=== PATIENT | male | born 1960 | race Caucasian/White ===

== ENCOUNTER 2018-06-14 09:35 | Inpatient (IN) | payer MEDICARE ==
[2018-06-14] MEDS ORDERED: ONDANSETRON 4 MG TAB.RAPDIS PO ONE (10:00)
--- NOTE | 2018-06-14 10:02 | ER Document Report ---
ED Medical Screen (RME) - General Chief Complaint: Blood Pressure Problem Stated Complaint: HIGH BLOOD PRESSURE Time Seen by Provider: 06/14/18 09:58 Mode of Arrival: Ambulatory Information source: Patient Notes: 57-year-old man with a history of hypertension, diabetes, chronic back pain presents with headache, tingling, blurry vision, off balance in the setting of elevated blood pressure. Patient's states the blood pressure is been elevated for the past week. The headache, nausea and vomiting started 3 days ago as well as the off balance. Patient's symptoms have been for 3 days. He is hypertensive in the triage room. Is no focal weakness. The gait was not assessed due to the fact that he is nauseated and does not feel well. TRAVEL OUTSIDE OF THE [place] IN LAST 30 DAYS: No - Related Data Allergies/Adverse Reactions: butorphanol tartrate [From Stadol] Allergy (Verified 06/14/18 09:39) clarithromycin [From Biaxin] Allergy (Verified 06/14/18 09:39) ketorolac tromethamine [From Toradol] Allergy (Verified 06/14/18 09:39) NSAIDS (Non-Steroidal Anti-Inflamma [Nsaids] Allergy (Verified 06/14/18 09:39) Penicillins Allergy (Verified 06/14/18 09:39) tramadol [Tramadol] Allergy (Verified 06/14/18 09:39) Past Medical History - Social History Frequency of alcohol use: None Drug Abuse: None - Past Medical History Cardiac Medical History: Reports: Hx Hypertension Endocrine Medical History: Reports: Hx Diabetes Mellitus Type 2 Renal/ Medical History: Denies: Hx Peritoneal Dialysis Musculoskeltal Medical History: Reports Hx Arthritis Past Surgical History: Reports: Hx Orthopedic Surgery - Multiple back neck and other orthopedic surgeries Physical Exam - Vital signs Vitals: Temp Pulse Resp BP Pulse Ox 99.2 F 106 H 18 223/120 H 96 06/14/18 09:39 06/14/18 09:39 06/14/18 09:39 06/14/18 09:39 06/14/18 09:39 Course - Vital Signs Vital signs: Temp Pulse Resp BP Pulse Ox 99.2 F 106 H 18 223/120 H 96 06/14/18 09:39 06/14/18 09:39 06/14/18 09:39 06/14/18 09:39 06/14/18 09:39 Doctor's Discharge - Discharge Referrals: RADHA CAMPA DO [Primary Care Provider] - Follow up as needed
[2018-06-14] MEDS ORDERED: AMLODIPINE BESYLATE 5 MG TABLET PO ONE ×2 (10:27→16:01)
[2018-06-14] MEDS ORDERED: NICARDIPINE HCL RTU, ISO-OS 20 MG/200 ML RTUINJ IV PRN (10:27)
--- NOTE | 2018-06-14 10:28 | RADIOLOGY REPORT (SQ) ---
EXAM DESCRIPTION: CT HEAD WITHOUT COMPLETED DATE/TIME: 06/14/2018 10:12 am REASON FOR STUDY: tao, hypertension COMPARISON: None. TECHNIQUE: Axial images acquired through the brain without intravenous contrast. Images reviewed wi th bone, brain and subdural windows. Additional sagittal and coronal reconstructions were generated. Images stored on PACS. All CT scanners at this facility use dose modulation, iterative reconstruction, and/or weight based d osing when appropriate to reduce radiation dose to as low as reasonably achievable (ALARA). [facility]: Dose Right [facility]: CareDose [facility]: Dose Right [facility]: Teradose 4D [facility]: Smart Work[employer]ound RADIATION DOSE: CT Rad equipment meets quality standard of care and radiation dose reduction techniq ues were employed. CTDIvol: 53.2 mGy. DLP: 1070 mGy-cm. mGy. LIMITATIONS: None. FINDINGS: VENTRICLES: Normal size and contour. CEREBRUM: No masses. No hemorrhage. No midline shift. No evidence for acute infarction. Normal gra y/white matter differentiation. No areas of low density in the white matter. CEREBELLUM: No masses. No hemorrhage. No alteration of density. No evidence for acute infarction. EXTRAAXIAL SPACES: No fluid collections. No masses. ORBITS AND GLOBE: No intra- or extraconal masses. Normal contour of globe without masses. CALVARIUM: No fracture. PARANASAL SINUSES: A small mucosal polyp or retention cyst is identified in the left maxillary antra SOFT TISSUES: No mass or hematoma. OTHER: No other significant finding. IMPRESSION: NORMAL BRAIN CT WITHOUT CONTRAST. EVIDENCE OF ACUTE STROKE: NO. COMMENT: Quality ID # [id number]: Final reports with documentation of one or more dose reduction techniques (e.g., Automated exposure control, adjustment of the mA and/or kV according to patient size, use of iterative reconstruction technique) TECHNICAL DOCUMENTATION: JOB ID: [id number] [employer]- All Rights Reserved Reading location - IP/workstation name: [email or web address]
--- NOTE | 2018-06-14 10:37 | RADIOLOGY REPORT (SQ) ---
EXAM DESCRIPTION: CHEST SINGLE VIEW COMPLETED DATE/TIME: 06/14/2018 10:24 am REASON FOR STUDY: cp COMPARISON: None. EXAM PARAMETERS: NUMBER OF VIEWS: One view. TECHNIQUE: Single frontal radiographic view of the chest acquired. RADIATION DOSE: NA LIMITATIONS: None. FINDINGS: LUNGS AND PLEURA: No opacities, masses or pneumothorax. No pleural effusion. MEDIASTINUM AND HILAR STRUCTURES: No masses. Contour normal. HEART AND VASCULAR STRUCTURES: Heart normal in size. Normal vasculature. BONES: No acute findings. Old healed left rib fractures are identified. Degenerative changes are id entified in the thoracic spine HARDWARE: Orthopedic hardware is identified in the lower cervical spine. OTHER: No other significant finding. IMPRESSION: NO ACUTE RADIOGRAPHIC FINDING IN THE CHEST. TECHNICAL DOCUMENTATION: JOB ID: [id number] [email or web address]- All Rights Reserved Reading location - IP/workstation name: [email or web address]
[2018-06-14 11:36] LABS: ABSOLUTE EOSINOPHILS # (AUTO) 0.1 10^3/uL (0.0-0.6); ABSOLUTE LYMPHOCYTES (AUTO) 1.4 10^3/uL (0.5-4.7); ABSOLUTE MONOCYTES (AUTO) 0.6 10^3/uL (0.1-1.4); ABSOLUTE NEUT (AUTO) 6.4 10^3/uL (1.7-8.2); BASOPHILS % (AUTO) 0.5 % (0-2); EOSINOPHILS % (AUTO) 0.6 % (0-6); HEMATOCRIT 41.4 % (37.9-51.0); HEMOGLOBIN 14.7 g/dL (13.5-17.0); LYMPHOCYTES % (AUTO) 16.5 % (13-45); MEAN CORPUSCULAR HEMOGLOBIN 32.2 pg (27.0-33.4); MEAN CORPUSCULAR HGB CONC 35.6 g/dL (32.0-36.0); MEAN CORPUSCULAR VOLUME 90 fl (80-97); MONOCYTES % (AUTO) 7.1 % (3-13); PLATELET COUNT 321 10^3/uL (150-450); RED BLOOD COUNT 4.58 10^6/uL (4.35-5.55); RED CELL DISTRIBUTION WIDTH 14.4 % (11.5-14.0); SEGMENTED NEUTROPHILS % (AUTO) 75.3 % (42-78); TOTAL CELLS COUNTED % (AUTO) 100 %; WHITE BLOOD COUNT 8.5 10^3/uL (4.0-10.5)
[2018-06-14 12:06] LABS: ALANINE AMINOTRANSFERASE 41 U/L (21-72); ALBUMIN 4.4 g/dL (3.5-5.0); ALKALINE PHOSPHATASE 50 U/L (38-126); ANION GAP 17 (5-19); ASPARTATE AMINO TRANSFERASE 14 U/L (17-59); BILIRUBIN,DIRECT 0.3 mg/dL (0.0-0.4); BILIRUBIN,TOTAL 0.4 mg/dL (0.2-1.3); BLOOD UREA NITROGEN 10 mg/dL (7-20); CALCIUM 9.3 mg/dL (8.4-10.2); CARBON DIOXIDE 23 mmol/L (22-30); CHLORIDE 100 mmol/L (98-107); GLUCOSE 157 mg/dL (75-110); POTASSIUM 4.1 mmol/L (3.6-5.0); SODIUM 140.1 mmol/L (137-145); TOTAL PROTEIN 7.4 g/dL (6.3-8.2)
[2018-06-14 12:09] LABS: CREATINE KINASE MB 1.05 ng/mL (<4.55)
[2018-06-14 12:10] LABS: TROPONIN I < 0.012 ng/mL
[2018-06-14 12:11] LABS: CREATINE KINASE 151 U/L (55-170); LIPASE 37.2 U/L (23-300)
[2018-06-14] MEDS ORDERED: LORAZEPAM INJ 2 MG/1 ML VIAL IV ONE (12:12)
[2018-06-14] MEDS ORDERED: NORMAL SALINE 1000 ML 1,000 ML IV ONE (12:14)
[2018-06-14] MEDS ORDERED: OXYCODONE-ACETAMINOPHEN 5-325 MG TABLET PO ONE (12:37)
[2018-06-14 12:45] LABS: APPEARANCE,URINE CLEAR; BILIRUBIN,URINE NEGATIVE (NEGATIVE); COLOR,URINE COLORLESS; GLUCOSE, URINE NEGATIVE (NEGATIVE); KETONES,URINE NEGATIVE (NEGATIVE); LEUKOCYTE ESTERASE,URINE NEGATIVE (NEGATIVE); NITRITE,URINE NEGATIVE (NEGATIVE); PROTEIN,URINE NEGATIVE (NEGATIVE); URINE SPECIFIC GRAVITY 1.003; UROBILINOGEN,URINE NEGATIVE mg/dL (<2.0)
--- NOTE | 2018-06-14 12:58 | EKG REPORT ---
SEVERITY:- ABNORMAL ECG - SINUS TACHYCARDIA LOW VOLTAGE IN FRONTAL LEADS BORDERLINE R WAVE PROGRESSION, ANTERIOR LEADS BORDERLINE T ABNORMALITIES, INFERIOR LEADS : Confirmed by: Kiran Ornelas MD 14-Jun-2018 12:57:03
[2018-06-14 13:02] LABS: URINE AMPHETAMINES SCREEN NEGATIVE; URINE BARBITURATES SCREEN NEGATIVE; URINE BENZODIAZEPINES SCREEN NEGATIVE; URINE COCAINE SCREEN NEGATIVE; URINE MARIJUANA (THC) SCREEN NEGATIVE; URINE METHADONE SCREEN NEGATIVE; URINE PHENCYCLIDINE SCREEN NEGATIVE
--- NOTE | 2018-06-14 14:03 | ER Document Report ---
ED General - General Chief Complaint: Blood Pressure Problem Stated Complaint: HIGH BLOOD PRESSURE Time Seen by Provider: 06/14/18 09:58 Mode of Arrival: Ambulatory TRAVEL OUTSIDE OF THE [place] IN LAST 30 DAYS: No - HPI Patient complains to provider of: Elevated blood pressure feeling unwell Notes: Patient coming in for elevated blood pressure feeling unwell for the last 3 days. states patient had intermittent slurred speech along with some numbness and tingling of his upper extremities. Patient denies any falls denies any unilateral weakness. Patient states history of hypertension and has been compliant with medications of metoprolol 25 mg twice daily. Patient denies any recent travel or antibiotics. Upon my evaluation denies any chest pain or abdominal pain. Patient does have a history of muscle skeletal disease requiring chronic opioid therapy. Patient states this morning he did take his medications however did vomit these. Patient otherwise is compliance with his medications. The changes in his pain medications also has a history of anxiety and is on benzodiazepine therapy. By my evaluation patient was to be resting comfortably with a significantly elevated blood pressure. - Related Data Allergies/Adverse Reactions: butorphanol tartrate [From Stadol] Allergy (Verified 06/14/18 09:39) clarithromycin [From Biaxin] Allergy (Verified 06/14/18 09:39) ketorolac tromethamine [From Toradol] Allergy (Verified 06/14/18 09:39) NSAIDS (Non-Steroidal Anti-Inflamma [Nsaids] Allergy (Verified 06/14/18 09:39) Penicillins Allergy (Verified 06/14/18 09:39) tramadol [Tramadol] Allergy (Verified 06/14/18 09:39) Past Medical History - General Information source: Patient - Social History Smoking Status: Former Smoker Frequency of alcohol use: None Drug Abuse: None Family History: Reviewed & Not Pertinent Patient has suicidal ideation: No Patient has homicidal ideation: No - Past Medical History Cardiac Medical History: Reports: Hx Hypertension Endocrine Medical History: Reports: Hx Diabetes Mellitus Type 2 Renal/ Medical History: Denies: Hx Peritoneal Dialysis Musculoskeletal Medical History: Reports Hx Arthritis Past Surgical History: Reports: Hx Orthopedic Surgery - Multiple back neck and other orthopedic surgeries Review of Systems - Review of Systems Constitutional: Weakness - The hypertension feeling un well EENT: No symptoms reported Cardiovascular: No symptoms reported Respiratory: No symptoms reported Gastrointestinal: No symptoms reported Genitourinary: No symptoms reported Male Genitourinary: No symptoms reported Musculoskeletal: No symptoms reported Skin: No symptoms reported Hematologic/Lymphatic: No symptoms reported Neurological/Psychological: No symptoms reported -: Yes All other systems reviewed and negative Physical Exam - Vital signs Vitals: Temp Pulse Resp BP Pulse Ox 99.2 F 106 H 18 223/120 H 96 06/14/18 09:39 06/14/18 09:39 06/14/18 09:39 06/14/18 09:39 06/14/18 09:39 Interpretation: Hypertensive - General General appearance: Appears well, Alert - HEENT Head: Normocephalic, Atraumatic Eyes: Normal Pupils: PERRL - Respiratory Respiratory status: No respiratory distress Chest status: Nontender Breath sounds: Normal Chest palpation: Normal - Cardiovascular Rhythm: Regular Heart sounds: Normal auscultation Murmur: No - Abdominal Inspection: Normal Distension: No distension Bowel sounds: Normal Tenderness: Nontender Organomegaly: No organomegaly - Back Back: Normal, Nontender - Extremities General upper extremity: Normal inspection, Nontender, Normal color, Normal ROM , Normal temperature General lower extremity: Normal inspection, Nontender, Normal color, Normal ROM , Normal temperature, Normal weight bearing. No: Elda's sign - Neurological Neuro grossly intact: Yes Cognition: Normal Orientation: AAOx4 Hugo Coma Scale Eye Opening: Spontaneous Hugo Coma Scale Verbal: Oriented Hugo Coma Scale Motor: Obeys Commands Hugo Coma Scale Total: 15 Speech: Normal - Speech seems to be normal and clear to me however at bedside states that this seem abnormal to her and slightly slurred Cranial nerves: Normal Cerebellar coordination: Normal Motor strength normal: LUE, RUE, LLE, RLE Additional motor exam normals: Equal teacher dramatics Sensory: Normal Knee - Reflex grade: 2 = Normal - Psychological Associated symptoms: Normal affect, Normal mood - Skin Skin Temperature: Warm Skin Moisture: Dry Skin Color: Normal Course - Re-evaluation Re-evalutation: 06/14/18 14:45 Patient coming in for slurred speech feeling unwell for the last 3 days paresthesias in the upper extremities. Patient's neurological exam does not reveal any unilateral weakness or any signs of acute intracranial pathology. Possible etiologies the patient has a hypertensive emergency because blood pressure is significantly elevated. Patient was given oral dose of amlodipine and started on a Cardene drip. Did set goals for systolic blood pressure to be around 180. Patient during his stay here in ER did become tachycardic upon my reevaluation still denies any chest pain or abdominal pain. Patient states he is feeling anxious therefore a dose of Ativan was given also a dose of the patient's pain medication at home was given. The reviewed patient's narcotic database showing that he is on benzodiazepines 3 times a day along with oxycodone 10 mg. Heart rate and blood pressure did improve. We were able to turn off the Cardene drip. Because of possible underlying hypertensive emergency did discuss this with the hospitalist and will agree to admit the patient to telemetry. Patient urine drug screen did return negative as I was concerned about possible underlying illicit substances because the patient's elevated blood pressure and tachycardia. - Vital Signs Vital signs: Temp Pulse Resp BP Pulse Ox 99.2 F 106 H 18 189/91 H 95 06/14/18 09:39 06/14/18 09:39 06/14/18 09:39 06/14/18 12:21 06/14/18 12:21 - Laboratory Result Diagrams: 06/14/18 11:05 06/14/18 11:05 Laboratory results interpreted by me: 06/14/18 06/14/18 06/14/18 11:05 11:05 12:20 RDW 14.4 H Glucose 157 H AST 14 L Urine Blood SMALL H Critical Care Note - Critical Care Note Total time excluding time spent on procedures (mins): 35 Comments: Time spent managing drips patient with hypertensive emergency Discharge - Discharge Clinical Impression: Hypertensive emergency, Numbness Condition: Good Disposition: ADMITTED OBSERVATION Admitting Provider: Hospitalist - [facility] Admitted: Telemetry
[2018-06-14] MEDS ORDERED: METOPROLOL TARTRATE 25 MG TABLET PO ONE (15:37)
[2018-06-14] MEDS ORDERED: MAGNESIUM HYDROXIDE SUSP 30 ML UDCUP PO PRN (15:45)
[2018-06-14] MEDS ORDERED: ONDANSETRON 4 MG TAB.RAPDIS PO PRN (15:45)
[2018-06-14] MEDS ORDERED: IPRATROPIUM/ALBUTEROL 0.5-2.5 MG/3 ML AMPUL NEB PRN (15:45)
[2018-06-14] MEDS ORDERED: OXYCODONE-ACETAMINOPHEN 5-325 MG TABLET PO PRN ×2 (15:45→17:00)
[2018-06-14] MEDS ORDERED: LORAZEPAM 1 MG TABLET PO PRN (15:56)
[2018-06-14] MEDS ORDERED: HYDRALAZINE HCL INJ/PF 20 MG/1 ML SDV IV PRN (16:04)
--- NOTE | 2018-06-14 16:19 | EKG REPORT ---
SEVERITY:- ABNORMAL ECG - SINUS TACHYCARDIA LOW VOLTAGE IN FRONTAL LEADS CONSIDER ANTEROSEPTAL INFARCT BORDERLINE T ABNORMALITIES, INFERIOR LEADS : Confirmed by: Kiran Ornelas MD 14-Jun-2018 16:19:02
--- NOTE | 2018-06-14 16:25 | PDOC H&P ---
History of Present Illness Admission Date/PCP: 06/14/18 14:35 RADHA CAMPA DO Patient complains of: Headache, parasthesia, generalized weakness History of Present Illness: ESAU PALOMO is a 57 year old male Past Medical History Medical History: None Cardiac Medical History: Reports: Hypertension Denies: Congestive Heart Failure, Coronary Artery Disease, Myocardial Infarction Pulmonary Medical History: Reports: None EENT Medical History: Reports: None Neurological Medical History: Reports: None Endocrine Medical History: Reports: Diabetes Mellitus Type 2 Renal/ Medical History: Reports: None Malignancy Medical History: Reports: None Musculoskeltal Medical History: Reports: Arthritis Skin Medical History: Reports: None Psychiatric Medical History: Reports: General Anxiety Disorder Traumatic Medical History: Reports: None Hematology: Reports: None Infectious Medical History: Reports: None Past Surgical History Past Surgical History: Reports: Orthopedic Surgery - Multiple back neck and other orthopedic surgeries Social History Information Source: Patient Lives with: Spouse/Significant other Smoking Status: Former Smoker Frequency of Alcohol Use: None Hx Recreational Drug Use: No Hx Prescription Drug Abuse: No - Advance Directive Resuscitation Status: Full Code Family History Family History: Reviewed & Not Pertinent Parental Family History Reviewed: No Children Family History Reviewed: No Sibling(s) Family History Reviewed.: No Medication/Allergy Allergies/Adverse Reactions: butorphanol tartrate [From Stadol] Allergy (Verified 06/14/18 09:39) clarithromycin [From Biaxin] Allergy (Verified 06/14/18 09:39) ketorolac tromethamine [From Toradol] Allergy (Verified 06/14/18 09:39) NSAIDS (Non-Steroidal Anti-Inflamma [Nsaids] Allergy (Verified 06/14/18 09:39) Penicillins Allergy (Verified 06/14/18 09:39) tramadol [Tramadol] Allergy (Verified 06/14/18 09:39) Review of Systems Constitutional: PRESENT: headache(s), weakness. ABSENT: chills, fever(s), weight gain, weight loss Eyes: PRESENT: visual disturbances Ears: ABSENT: hearing changes Cardiovascular: PRESENT: chest pain. ABSENT: dyspnea on exertion, edema, orthropnea, palpitations Respiratory: ABSENT: cough, hemoptysis Gastrointestinal: PRESENT: nausea, vomiting. ABSENT: abdominal pain, constipation, diarrhea, hematemesis, hematochezia Genitourinary: ABSENT: dysuria, hematuria Musculoskeletal: PRESENT: back pain. ABSENT: joint swelling Integumentary: ABSENT: rash, wounds Neurological: PRESENT: paresthesias, tingling. ABSENT: abnormal gait, abnormal speech, confusion, dizziness, focal weakness, syncope Psychiatric: PRESENT: anxiety. ABSENT: depression, homidical ideation, suicidal ideation Endocrine: ABSENT: cold intolerance, heat intolerance, polydipsia, polyuria Hematologic/Lymphatic: ABSENT: easy bleeding, easy bruising Physical Exam Vital Signs: Temp Pulse Resp BP Pulse Ox 99.2 F 106 H 15 178/110 H 94 06/14/18 09:39 06/14/18 09:39 06/14/18 15:16 06/14/18 15:16 06/14/18 15:16 General appearance: PRESENT: no acute distress, well-developed, well-nourished, other - Overweight Head exam: PRESENT: atraumatic, normocephalic Eye exam: PRESENT: conjunctiva pink, EOMI, PERRLA. ABSENT: scleral icterus Ear exam: PRESENT: normal external ear exam Mouth exam: PRESENT: moist, tongue midline Neck exam: ABSENT: carotid bruit, JVD, lymphadenopathy, thyromegaly Respiratory exam: PRESENT: clear to auscultation yolis, symmetrical, unlabored. ABSENT: rales, rhonchi, wheezes Cardiovascular exam: PRESENT: RRR, tachycardia. ABSENT: diastolic murmur, rubs , systolic murmur Pulses: PRESENT: normal dorsalis pedis pul Vascular exam: PRESENT: normal capillary refill GI/Abdominal exam: PRESENT: normal bowel sounds, soft. ABSENT: distended, guarding, mass, organolmegaly, rebound, tenderness Rectal exam: PRESENT: deferred Extremities exam: PRESENT: full ROM. ABSENT: calf tenderness, clubbing, pedal edema Neurological exam: PRESENT: alert, awake, oriented to person, oriented to place , oriented to time, oriented to situation, CN II-XII grossly intact. ABSENT: motor sensory deficit Psychiatric exam: PRESENT: appropriate affect, normal mood. ABSENT: homicidal ideation, suicidal ideation Skin exam: PRESENT: dry, intact, warm. ABSENT: cyanosis, rash Results Impressions: Head CT 06/14/18 09:59 IMPRESSION: NORMAL BRAIN CT WITHOUT CONTRAST. EVIDENCE OF ACUTE STROKE: NO. Chest X-Ray 06/14/18 10:00 IMPRESSION: NO ACUTE RADIOGRAPHIC FINDING IN THE CHEST. Assessment & Plan - Diagnosis (1) Hypertensive urgency Is this a current diagnosis for this admission?: Yes Plan: The patient presented with a complaint of 1 week of progressively worsening blood pressures despite compliant use in his home dose metoprolol. The patient reports that he has had intermittent headaches, blurred vision, paresthesia, and generalized weakness. He decided to come into the emergency department today following an episode of nausea and vomiting. Upon arrival blood pressure found to be 223/120 with tachycardia 90-160. The patient was provided p.o. amlodipine briefly placed on a Cardene drip with subsequent improvement in blood pressures. The Cardene drip was discontinued proximally [address], chest x-ray, and EKG benign. Laboratory evaluation is unremarkable, including negative troponin. UDS is negative. Patient is admitted to the medical floor on continuous cardiac telemetry. He is provided a note dose of metoprolol and amlodipine Will resume his home dose metoprolol 25 mg twice daily and lisinopril 20 mg daily. The patient is placed on amlodipine 10 mg daily. IV hydralazine as needed for blood pressure control. Consider clonidine patch; may provide dual HTN and Anxiety benefit Will continue to trend troponins and obtain lipid, A1c and TSH with morning labs. Consider Renal U/S if BP remains persistently elevated. (2) Intermittent paresthesia of hand and foot Is this a current diagnosis for this admission?: Yes Plan: Unclear etiology; possibly related to hypertensive urgency versus multiple orthopedic spine surgeries. No red flags. Patient reports allergy to Lyrica and gabapentin. We will evaluate C-Spine xray. (3) Tachycardia Is this a current diagnosis for this admission?: Yes Plan: Anxiety vs reflex tachycardia r/t missed metoprolol dose this am. Low suspicion for PE as patient denies dyspnea and maintains oxygen saturations >98% on room air, no recent travel, (-) extremity edema. ProBNP is nml Initial troponin is negative EKG is negative for acute MO CXR and Head CT normal. Will monitor on continuous telemetry. We will check TSH. Continue trending troponins. Resume home metoprolol. (4) Anxiety Is this a current diagnosis for this admission?: Yes Plan: Continue the patient's home medication regimen; Xanax 1 mg every 6 hours as needed. (5) Chronic pain Is this a current diagnosis for this admission?: Yes Plan: We will continue the patient's home medication regimen; oxycodone 10 mg every 6 hours. (6) Opiate dependence, continuous Is this a current diagnosis for this admission?: Yes (7) Benzodiazepine dependence, continuous Is this a current diagnosis for this admission?: Yes - Time Time Spent: 50 to 70 Minutes Medications reviewed and adjusted accordingly: Yes Anticipated discharge: Home Within: within 24 hours
[2018-06-14] MEDS ORDERED: LISINOPRIL 10 MG TABLET PO ONE (17:15)
[2018-06-14] MEDS: ALPRAZOLAM 0.5 MG TABLET PO PRN (17:42)
[2018-06-14] MEDS ORDERED: AMLODIPINE BESYLATE 10 MG TABLET PO ONE (18:00)
[2018-06-14] MEDS ORDERED: NITROGLYCERIN 0.4 MG/TAB 25 TAB/BOTTLE ONE (21:05)
[2018-06-14] MEDS ORDERED: KETOROLAC TROMETHAMINE INJ/PF 30 MG/1 ML SDV IV PRN (21:07)
[2018-06-14] MEDS ORDERED: METOPROLOL TARTRATE PF/INJ 5 MG/5 ML SDV IV ONE (21:10)
[2018-06-14] MEDS ORDERED: NITROGLYCERIN 0.4 MG/TAB 25 TAB/BOTTLE SL ONE (21:15)
[2018-06-14] MEDS: ACETAMINOPHEN 325 MG TABLET PO PRN (21:22)
[2018-06-14] MEDS: FAMOTIDINE 20 MG TABLET PO SCH (21:22)
[2018-06-14] MEDS: HEPARIN SOD (PORCINE) 5,000 UNIT/ML 1 ML SYRINGE SUBCUT SCH (22:08)
[2018-06-14] MEDS: METOPROLOL TARTRATE 25 MG TABLET PO SCH (22:09)
[2018-06-14] MEDS: OXYCODONE-ACETAMINOPHEN 5-325 MG TABLET PO PRN (22:20)
[2018-06-15] MEDS: ALPRAZOLAM 0.5 MG TABLET PO PRN ×4 (00:01→20:53)
[2018-06-15] MEDS: MAG HYDROX/AL HYDROX/SIMETH SUSP 30 ML UDCUP PO PRN ×2 (03:02→20:43)
[2018-06-15] MEDS: HEPARIN SOD (PORCINE) 5,000 UNIT/ML 1 ML SYRINGE SUBCUT SCH ×3 (06:28→22:06)
[2018-06-15 06:34] LABS: HEMATOCRIT 39.8 % (37.9-51.0); HEMOGLOBIN 13.8 g/dL (13.5-17.0); MEAN CORPUSCULAR HEMOGLOBIN 31.6 pg (27.0-33.4); MEAN CORPUSCULAR HGB CONC 34.6 g/dL (32.0-36.0); MEAN CORPUSCULAR VOLUME 91 fl (80-97); PLATELET COUNT 290 10^3/uL (150-450); RED BLOOD COUNT 4.36 10^6/uL (4.35-5.55); RED CELL DISTRIBUTION WIDTH 14.4 % (11.5-14.0); WHITE BLOOD COUNT 7.6 10^3/uL (4.0-10.5)
[2018-06-15 06:56] LABS: ANION GAP 13 (5-19); BLOOD UREA NITROGEN 13 mg/dL (7-20); CALCIUM 9.2 mg/dL (8.4-10.2); CARBON DIOXIDE 26 mmol/L (22-30); CHLORIDE 102 mmol/L (98-107); CHOLESTEROL 179.23 mg/dL (0-200); GLUCOSE 112 mg/dL (75-110); POTASSIUM 4.5 mmol/L (3.6-5.0); SODIUM 140.7 mmol/L (137-145); TRIGLYCERIDES 300 mg/dL (<150)
[2018-06-15 07:07] LABS: DIRECT LDL 95 mg/dL (<100)
[2018-06-15] MEDS ORDERED: ONDANSETRON 4 MG TAB.RAPDIS PO PRN (08:00)
[2018-06-15] MEDS: OXYCODONE-ACETAMINOPHEN 5-325 MG TABLET PO PRN (08:24)
[2018-06-15] MEDS: METOPROLOL TARTRATE 25 MG TABLET PO SCH ×3 (09:10→22:05)
[2018-06-15] MEDS: FAMOTIDINE 20 MG TABLET PO SCH ×2 (09:14→22:06)
[2018-06-15] MEDS ORDERED: AMLODIPINE BESYLATE 10 MG TABLET PO SCH (10:00)
--- NOTE | 2018-06-15 10:31 | RADIOLOGY REPORT (SQ) ---
EXAM DESCRIPTION: CERV SP 3 VIEW OR LESS COMPLETED DATE/TIME: 06/15/2018 8:53 am REASON FOR STUDY: BUE parasthesia; hx c-spine surgery I16.0 HYPERTENSIVE URGENCY R73.9 HYPERGLYCEM IA, UNSPECIFIED COMPARISON: CT brain 06/14/2018 NUMBER OF VIEWS: Three views. TECHNIQUE: AP, lateral and odontoid radiographic images acquired of the cervical spine. Additional swimmer's view to demonstrate the lower cervical spine LIMITATIONS: Large patient, difficult to visualize the cervical spine inferior to C5 FINDINGS: MINERALIZATION: Normal. ALIGNMENT: Grossly normal VERTEBRAE: Vertebral bodies of normal height. DISCS: Post fusion at C4-5, C5-6 and C6-7 with anterior fixation plate and disc spacers HARDWARE: As above SOFT TISSUES: No masses or calcifications. Lung apices clear. OTHER: No other significant finding. IMPRESSION: Post fusion at C4-5, C5-6, and C6-7 with hardware and disc spacers. No gross malalignme nt. TECHNICAL DOCUMENTATION: JOB ID: [id number] [employer]- All Rights Reserved Reading location - IP/workstation name: [email or web address]
[2018-06-15] MEDS ORDERED: OXYCODONE-ACETAMINOPHEN 5-325 MG TABLET PO PRN (11:37)
[2018-06-15] MEDS: LISINOPRIL 10 MG TABLET PO SCH (12:38)
[2018-06-15 12:43] LABS: APPEARANCE,URINE CLEAR; BILIRUBIN,URINE NEGATIVE (NEGATIVE); COLOR,URINE STRAW; GLUCOSE, URINE NEGATIVE (NEGATIVE); KETONES,URINE NEGATIVE (NEGATIVE); LEUKOCYTE ESTERASE,URINE NEGATIVE (NEGATIVE); NITRITE,URINE NEGATIVE (NEGATIVE); PROTEIN,URINE NEGATIVE (NEGATIVE); URINE SPECIFIC GRAVITY 1.006; UROBILINOGEN,URINE NEGATIVE mg/dL (<2.0)
[2018-06-15 13:15] LABS: URINE AMPHETAMINES SCREEN NEGATIVE; URINE BARBITURATES SCREEN NEGATIVE; URINE BENZODIAZEPINES SCREEN NEGATIVE; URINE COCAINE SCREEN NEGATIVE; URINE MARIJUANA (THC) SCREEN NEGATIVE; URINE METHADONE SCREEN NEGATIVE; URINE PHENCYCLIDINE SCREEN NEGATIVE
--- NOTE | 2018-06-15 13:53 | Physician Advisory Note ---
Physician Advisor ProgressNote .: Pursuant to the plan for Rama Alva, I have reviewed the medical record for this patient. Physician Advisor Statement: Please consider documenting, if you agree: 1. "Hypertensive emergency producing WALLER/blurred vision/slurred speech/ paresthesias/CP/N/V" - (Dx "HTN-adali urgency" indicates there are no associated sx.) 2. "Orthostatic hypotension due to [specific multiple BP meds]" 3. "Acute cerebrovascular insufficiency" (causing general weakness, ambulatory dysfunction, ...) related to tremendous change in BPs w/in 24 hrs? 4. "Ambulatory dysfunction due to " (combo of #2 + ) 5. Medical necessity: Please spell out the reasons, each day, that pt is not yet clinically safe for d/c from hospital (May use some of the points below PRN , &/or state "CONCERNED about "). Status: 57yo w/opioid/benzo dependence, HTN, DM-2, mult ortho surgeries incl C- spine, on chr metoprolol, in w/severe HTN findings associated w/multiple symptoms & requiring mult agents to produce reasonable improvement initially, approp'ly brought in initially as Obs. However, continued to have persistent tachycardia >100 through most of first day, & since last PM has had prominent hypotension down to less than half the initial BPs (systolic drops of >110 & diast changes of >60, within 24 hrs), which is a LOT for the brain to accommodate. Today, feeling very orthostatic with attempting PT, only able to walk 8 ft w/FWW w/unsteady gait. Orthostatics (+) today. Will need continued PT/OT. Not safe for d/c today. Appropriate for change to INpt status today w/ documentation of medical necessity reasons. Thanks! CK
--- NOTE | 2018-06-15 19:43 | PDOC PROGRESS REPORT ---
Subjective Progress Note for:: 06/15/18 Subjective:: The patient is a 57-year-old male with a past medical history of hypertension, diabetes mellitus type 2, general anxiety disorder, chronic back pain, chronic opiate and benzodiazepine dependence who was admitted 06/14/18 with hypertensive emergency. The patient was seen on afternoon rounds with his present. He states that he is feeling better this afternoon as compared to earlier today. He reports that his headache has resolved, he feels less tremulous and more stable when up ambulatory to the bathroom. He does report continued intermittent paresthesias that are more pronounced per his baseline. He does admit to right lower extremity weakness chronically as a result of his previous spine injuries/ surgeries. He denies fever, chills, headaches, dizziness, blurred vision, chest pain, palpitations, dyspnea, orthopnea, cough, abdominal pain, nausea vomiting and diarrhea. Neither he or his have any specific concerns at this time. No concerns per nursing. Reason For Visit: HYPERTENSIVE EMERGENCY Physical Exam Vital Signs: Temp Pulse Resp BP Pulse Ox 98 F 72 18 118/87 H 94 06/15/18 16:00 06/15/18 16:00 06/15/18 16:00 06/15/18 16:00 06/15/18 16:00 Intake & Output 06/14/18 06/15/18 06/16/18 06:59 06:59 06:59 Intake Total 709 1346 Output Total 1250 1175 Balance -541 171 Weight 95.8 kg General appearance: PRESENT: no acute distress, well-developed, well-nourished - Overweight Head exam: PRESENT: atraumatic, normocephalic Eye exam: PRESENT: conjunctiva pink, EOMI, PERRLA. ABSENT: scleral icterus Ear exam: PRESENT: normal external ear exam Mouth exam: PRESENT: moist, tongue midline Neck exam: ABSENT: carotid bruit, JVD, lymphadenopathy, thyromegaly Respiratory exam: PRESENT: clear to auscultation yolis. ABSENT: rales, rhonchi, wheezes Cardiovascular exam: PRESENT: RRR. ABSENT: diastolic murmur, rubs, systolic murmur Pulses: PRESENT: normal dorsalis pedis pul Vascular exam: PRESENT: normal capillary refill GI/Abdominal exam: PRESENT: normal bowel sounds, soft. ABSENT: distended, guarding, mass, organolmegaly, rebound, tenderness Rectal exam: PRESENT: deferred Extremities exam: PRESENT: full ROM. ABSENT: calf tenderness, clubbing, pedal edema Neurological exam: PRESENT: alert, awake, oriented to person, oriented to place , oriented to time, oriented to situation, CN II-XII grossly intact. ABSENT: motor sensory deficit Psychiatric exam: PRESENT: appropriate affect, normal mood. ABSENT: homicidal ideation, suicidal ideation Skin exam: PRESENT: dry, intact, warm. ABSENT: cyanosis, rash Results Laboratory Results: 06/15/18 05:29 06/15/18 05:29 06/15/18 06/15/18 06/15/18 05:29 05:29 05:29 WBC 7.6 RBC 4.36 Hgb 13.8 Hct 39.8 MCV 91 MCH 31.6 MCHC 34.6 RDW 14.4 H Plt Count 290 Sodium 140.7 Potassium 4.5 Chloride 102 Carbon Dioxide 26 Anion Gap 13 BUN 13 Creatinine 1.10 Est GFR ( Amer) > 60 Est GFR (Non-Af Amer) > 60 Glucose 112 H Calcium 9.2 Triglycerides 300 H Cholesterol 179.23 LDL Cholesterol Direct 95 VLDL Cholesterol 60.0 H HDL Cholesterol 37 L TSH 2.00 Urine Color Urine Appearance Urine pH Ur Specific [place] Urine Protein Urine Glucose (UA) Urine Ketones Urine Blood Urine Nitrite Ur Leukocyte Esterase Urine RBC (Auto) 06/15/18 12:00 WBC RBC Hgb Hct MCV MCH MCHC RDW Plt Count Sodium Potassium Chloride Carbon Dioxide Anion Gap BUN Creatinine Est GFR ( Amer) Est GFR (Non-Af Amer) Glucose Calcium Triglycerides Cholesterol LDL Cholesterol Direct VLDL Cholesterol HDL Cholesterol TSH Urine Color STRAW Urine Appearance CLEAR Urine pH 6.0 Ur Specific [place] 1.006 Urine Protein NEGATIVE Urine Glucose (UA) NEGATIVE Urine Ketones NEGATIVE Urine Blood NEGATIVE Urine Nitrite NEGATIVE Ur Leukocyte Esterase NEGATIVE Urine RBC (Auto) 0 06/14/18 06/14/18 15:58 20:05 Troponin I < 0.012 < 0.012 Impressions: Head CT 06/14/18 09:59 IMPRESSION: NORMAL BRAIN CT WITHOUT CONTRAST. EVIDENCE OF ACUTE STROKE: NO. Chest X-Ray 06/14/18 10:00 IMPRESSION: NO ACUTE RADIOGRAPHIC FINDING IN THE CHEST. Cervical Spine X-Ray 06/15/18 07:00 IMPRESSION: Post fusion at C4-5, C5-6, and C6-7 with hardware and disc spacers. No gross malalignment. Assessment & Plan - Diagnosis (1) Hypertensive emergency Is this a current diagnosis for this admission?: Yes Plan: Much improved. Manual blood pressure this afternoon is 118/87 with a heart rate of 72. He patient presented with a complaint of 1 week of progressively worsening blood pressures despite compliant use in his home dose metoprolol. The patient reports that he has had intermittent headaches, blurred vision, paresthesia, and generalized weakness. He decided to come into the emergency department today following an episode of nausea and vomiting. Upon arrival blood pressure found to be 223/120 with tachycardia 90-160. Head CT, chest x-ray, and EKG benign. Initial laboratory evaluation was unremarkable UDS is negative x2 TSH, A1c, and lipid panel are acceptable. Did discuss elevated triglycerides and lifestyle modifications. Serial troponins were negative. Patient is admitted to the medical floor on continuous cardiac telemetry. Continue his home dose metoprolol 25 mg twice daily and lisinopril 20 mg daily. IV hydralazine as needed for blood pressure control. Consider clonidine patch; may provide dual HTN and Anxiety benefit The patient did experience low blood pressures this morning (108/54) with associated dizziness, generalized weakness, and near syncope when working with PT/OT. The patient's home dose oxycodone and Xanax were decreased; this was discussed with the patient he was agreeable. (2) Intermittent paresthesia of hand and foot Is this a current diagnosis for this admission?: Yes Plan: Unclear etiology; possibly related to hypertensive urgency versus multiple orthopedic spine surgeries. No red flags. Patient reports allergy to Lyrica and gabapentin. C-spine imaging demonstrated known hardware with no malalignments. Patient reports that his paresthesias are improving. May have been related to his hypertensive emergency. He does report some baseline numbness, especially to his right lower extremity. We did discuss that if he continues to have worsened paresthesias from his baseline he should consider follow-up with his primary care provider to discuss outpatient imaging of his spine, but as he had no red flags at this time there is no indication to do so now. The patient and his both expressed understanding and agreement. (3) Anxiety Is this a current diagnosis for this admission?: Yes Plan: There is reduction secondary to relative hypotension; patient reports understanding and agreement with plan. Xanax 0.5 mg every 8 hours as needed. (4) Chronic pain Is this a current diagnosis for this admission?: Yes Plan: Dose reduction secondary to relative hypotension; oxycodone 5 mg every 6 hours as needed. Discussed with patient, he expresses understanding and agreement with plan. (5) Opiate dependence, continuous Is this a current diagnosis for this admission?: Yes (6) Benzodiazepine dependence, continuous Is this a current diagnosis for this admission?: Yes (7) Tachycardia Is this a current diagnosis for this admission?: Yes Plan: Resolved; heart rate trended down overnight, has been 60s-70s today. Most likely was related to anxiety vs reflex tachycardia r/t multiple missed metoprolol doses (both at home and held per nursing overnight due to relative hypotension). Low suspicion for PE as patient denies dyspnea and maintains oxygen saturations >98% on room air, no recent travel, (-) extremity edema. ProBNP is nml Serial troponins negative EKG is negative for acute [place] CXR and Head CT normal. (8) Ambulatory dysfunction Is this a current diagnosis for this admission?: Yes Plan: The patient experienced difficulty with both physical therapy and occupational therapy today; required use of a walker and 1-2 person assist for stability. He was found to have a very unstable gait and was only able to ambulate approximately 80 feet. The patient did express near syncopal symptoms while up with physical therapy. This likely secondary to relative hypotension as the patients blood pressure was aggressively managed yesterday resulting in a pressure decreased from 200/ 120s to 108/54. Although, her vital signs do initially indicate orthostatic hypotension, I believe this to be inaccurate. I discussed with the nurse aide how she obtained these blood pressures. All 3 blood pressures were taken with an automatic blood pressure cuff. She used the blood pressure cuff reading for the heart rate; however, the patient was noted to be tremulous with shaking arms to maintain balance while holding onto his and walker. Additionally, the blood pressures were taken out of order; initially sitting, then lying then standing. Repeat orthostatic blood pressures obtained this afternoon with a manual cuff were normal. PT/OT do recommend skilled services at discharge; will ask that they reevaluate in the morning to determine readiness for discharge to home with home health follow-up versus acute rehabilitation. I do anticipate that his blood pressures stabilize, the patient's symptoms of near-syncope will resolve and he should be stable for discharge home. - Time Time Spent with patient: 35 or more minutes Medications reviewed and adjusted accordingly: Yes Anticipated discharge: Home with Homehealth - Inpatient Certification Based on my medical assessment, after consideration of the patient's comorbidities, presenting symptoms, or acuity I expect that the services needed warrant INPATIENT care.: Yes I certify that my determination is in accordance with my understanding of Medicare's requirements for reasonable and necessary INPATIENT services [42 CFR 412.3e].: Yes Medical Necessity: Need For Continuous Telemetry Monitoring, Risk of Diagnosis Which Will Require Inpatient Eval/Care/Monitoring
[2018-06-16] MEDS ORDERED: TRAZODONE HCL 50 MG TABLET PO PRN (00:25)
[2018-06-16] MEDS ORDERED: DEXTROSE 40% GEL 15 GM TUBE X 2 PO PRN (00:28)
[2018-06-16] MEDS ORDERED: DEXTROSE 50%-WATER SYRINGE 25 GM/50 ML DOSE IV PRN (00:28)
[2018-06-16] MEDS ORDERED: DEXTROSE 40% GEL 15 GM TUBE PO PRN (00:28)
[2018-06-16] MEDS ORDERED: GLUCAGON,HUMAN RECOMB 1 MG INJ IM PRN (00:28)
[2018-06-16] MEDS ORDERED: DEXTROSE 50%-WATER SYRINGE 12.5 GM/25 ML DOSE IV PRN (00:28)
[2018-06-16] MEDS: HEPARIN SOD (PORCINE) 5,000 UNIT/ML 1 ML SYRINGE SUBCUT SCH ×3 (05:05→22:19)
[2018-06-16] MEDS: ALPRAZOLAM 0.5 MG TABLET PO PRN ×2 (05:06→13:56)
[2018-06-16] MEDS: MAG HYDROX/AL HYDROX/SIMETH SUSP 30 ML UDCUP PO PRN (05:13)
[2018-06-16] MEDS: INSULIN LISPRO 100 UNIT/ML 3 ML VIAL SUBCUT SCH ×3 (07:51→17:10)
[2018-06-16] MEDS: OXYCODONE-ACETAMINOPHEN 5-325 MG TABLET PO PRN (07:56)
[2018-06-16] MEDS: METOPROLOL TARTRATE 25 MG TABLET PO SCH ×2 (10:16→22:20)
[2018-06-16] MEDS: LISINOPRIL 10 MG TABLET PO SCH (10:16)
[2018-06-16] MEDS: FAMOTIDINE 20 MG TABLET PO SCH ×2 (10:17→22:22)
[2018-06-16] MEDS: ACETAMINOPHEN 325 MG TABLET PO PRN (11:22)
[2018-06-16] MEDS ORDERED: ALPRAZOLAM 0.5 MG TABLET PO PRN (16:29)
[2018-06-17] MEDS: HEPARIN SOD (PORCINE) 5,000 UNIT/ML 1 ML SYRINGE SUBCUT SCH (05:18)
[2018-06-17] MEDS: OXYCODONE-ACETAMINOPHEN 5-325 MG TABLET PO PRN (05:19)
[2018-06-17] MEDS: INSULIN LISPRO 100 UNIT/ML 3 ML VIAL SUBCUT SCH ×2 (09:32→12:17)
[2018-06-17] MEDS: METOPROLOL TARTRATE 25 MG TABLET PO SCH (12:14)
[2018-06-17] MEDS: LISINOPRIL 10 MG TABLET PO SCH (12:14)
[2018-06-17] MEDS: FAMOTIDINE 20 MG TABLET PO SCH (12:14)
[2018-06-17 12:29] VITALS: BP 118/86
--- NOTE | 2018-06-24 21:06 | PDOC DISCHARGE SUMMARY ---
General - Admit/Disc Date/PCP Admission Date/Primary Care Provider: 06/15/18 14:00 RADHA CAMPA, Discharge Date: 06/17/18 - Discharge Diagnosis (1) Anxiety Is this a current diagnosis for this admission?: Yes (2) Benzodiazepine dependence, continuous Is this a current diagnosis for this admission?: Yes (3) Hypertensive emergency Is this a current diagnosis for this admission?: Yes (4) Intermittent paresthesia of hand and foot Is this a current diagnosis for this admission?: Yes (5) Opiate dependence, continuous Is this a current diagnosis for this admission?: Yes (6) Tachycardia Is this a current diagnosis for this admission?: Yes - Additional Information Resuscitation Status: Full Code Discharge Diet: As Tolerated, Diabetic Discharge Activity: Activity As Tolerated Prescriptions: Atorvastatin Calcium 20 mg PO QHS #30 tablet Home Medications: Alprazolam [Xanax] 1 mg PO Q6HP PRN 06/14/18 Lisinopril [Prinivil] 20 mg PO DAILY 06/14/18 Metformin HCl [Glucophage 500 mg Tablet] 500 mg PO DAILY 06/14/18 Metoprolol Tartrate [Lopressor 25 mg Tablet] 25 mg PO Q12 06/14/18 Oxycodone HCl/Acetaminophen [Percocet 10-325 mg Tablet] 1 tab PO Q6HP PRN Atorvastatin Calcium 20 mg PO QHS #30 tablet 06/17/18 History of Present Illness History of Present Illness: ESAU PALOMO is a 57 year old male who presented with a complaint of 1 week of progressively worsening blood pressures despite compliant use in his home dose metoprolol. The patient reports that he has had intermittent headaches, blurred vision, paresthesia, and generalized weakness. He decided to come into the emergency department today following an episode of nausea and vomiting. Upon arrival blood pressure found to be 223/120 with tachycardia 90-160. The patient was provided p.o. amlodipine briefly placed on a Cardene drip with subsequent improvement in blood pressures. The Cardene drip was discontinued within hours of initiation. Hospital Course Hospital Course: The patient is a 57-year-old male with a past medical history of hypertension, diabetes mellitus type 2, general anxiety disorder, chronic back pain, chronic opiate and benzodiazepine dependence who was admitted 06/14/18 with hypertensive emergency. He patient presented with a complaint of 1 week of progressively worsening blood pressures despite compliant use of his home dose metoprolol. The patient reports that he has had intermittent headaches, blurred vision, paresthesia, and generalized weakness. He decided to come into the emergency department today following an episode of nausea and vomiting. Upon arrival blood pressure found to be 223/120 with tachycardia 90-160. Head CT, chest x-ray, and EKG benign. Initially treated with a Cardene gtt, the patient was successfully transitioned to his home dose metoprolol 25mg PO BID and lisinopril 20mg PO daily. UTOX negative. Serial troponins were negative. TSH, A1c, and lipid panel are acceptable. Did discuss elevated triglycerides and lifestyle modifications. The patient did experience low blood pressures (108/54) on hospital day #2 with associated dizziness, generalized weakness, and near syncope when working with PT/OT. This likely secondary to relative hypotension as the patients blood pressure was aggressively managed yesterday resulting in a pressure decreased from 200/120s to 108/54. The patient's home dose oxycodone and Xanax were decreased; this was discussed with the patient he was agreeable. Aditionally, the patient complained of intermittent parasthesia to R hand and foot. Unclear etiology; possibly related to hypertensive urgency versus multiple orthopedic spine surgeries. No red flags. C-spine imaging demonstrated known hardware with no misalignments. Patient reported allergy to Lyrica and gabapentin. He does report some baseline numbness, especially to his right lower extremity. Discussed with hospitalist that if he continues to have worsened paresthesias from his baseline he should consider follow-up with his primary care provider to discuss outpatient imaging of his spine, but as he had no red flags at this time there is no indication to do so now. The patient and his both expressed understanding and agreement. At the time of discharge, the patient's blood pressure had returned to normal range and he did not experience a HYPOtensive episode for >24hrs. His hypertensive emergency was thought to be brought on by the incredible amount of stress the patient was under (mother recently suffered [place], one son is addicted to drugs, another son having financial difficulty). An incidental finding on his lab work was his elevated triglycerides. The patient was counseled on lifestyle changes and dietary modifications. The discharge instructions were thoroughly explained to the patient, he stated full understanding. For any further information regarding the patient's hospitalization, please refer to the EMR. Physical Exam Vital Signs: Temp Pulse Resp BP Pulse Ox 99.5 F 121 H 19 118/86 H 97 06/17/18 12:26 06/17/18 12:26 06/17/18 12:26 06/17/18 12:26 06/17/18 12:26 Results Impressions: Head CT 06/14/18 09:59 IMPRESSION: NORMAL BRAIN CT WITHOUT CONTRAST. EVIDENCE OF ACUTE STROKE: NO. Chest X-Ray 06/14/18 10:00 IMPRESSION: NO ACUTE RADIOGRAPHIC FINDING IN THE CHEST. Cervical Spine X-Ray 06/15/18 07:00 IMPRESSION: Post fusion at C4-5, C5-6, and C6-7 with hardware and disc spacers. No gross malalignment. Status: Imported from [facility] Qual[facility] - * PATIENT BEING DISCHARGED WITH ANY OF THE FOLLOWING DIAGNOSIS: No Plan Time Spent: Less than 30 Minutes
== END 2018-06-17 13:23 | disposition home or self-care (01) | DRG 305 ==
LOC: ER 09:35 → INTOOBSV 14:35 → OBSVTOIN 14:35 → EH 14:35 → 5 16:14 → OBSVTOIN 06-15 14:00
PROVIDERS: ADMIT Internal Medicine; ATTEND Internal Medicine
PROC: 3E0F73Z Introduction of Anti-inflammatory into Respiratory Tract, Via Natural or Artificial Opening (ICD-10-PCS; principal; 2018-06-16)
DX: I16.1 Hypertensive emergency (principal); F13.20 Sedative, hypnotic or anxiolytic dependence, uncomplicated; F11.20 Opioid dependence, uncomplicated; R20.2 Paresthesia of skin; R00.0 Tachycardia, unspecified; E11.9 Type 2 diabetes mellitus without complications; I10 Essential (primary) hypertension; F41.1 Generalized anxiety disorder; G89.29 Other chronic pain; M54.9 Dorsalgia, unspecified; R47.81 Slurred speech; M19.90 Unspecified osteoarthritis, unspecified site; E66.3 Overweight; Z68.29 Body mass index [BMI] 29.0-29.9, adult; Z87.891 Personal history of nicotine dependence; Z88.6 Allergy status to analgesic agent; Z88.3 Allergy status to other anti-infective agents; Z88.0 Allergy status to penicillin; Z88.8 Allergy status to other drugs, medicaments and biological substances; Z82.49 Family history of ischemic heart disease and other diseases of the circulatory system; Z81.3 Family history of other psychoactive substance abuse and dependence
CPT/HCPCS: 36415; 70450; 71045; 72040; 80048; 80053; 80061; 80307; 81001; 82550; 82553; 82962; 83036; 83690; 83735; 83880; 84443; 84484; 85025; 85027; 93005; 93010; 96361; 96374; 99285; G0378; G8978-GP; G8979-GP; G8987-GO; G8988-GO; J1644; J2060; J3490; J7030; S0119

== ENCOUNTER 2018-09-07 09:44 | Emergency (ER) | payer MEDICARE ==
[2018-09-07] MEDS ORDERED: LIDOCAINE 1% INJ-PF (10 MG/ML) 30 ML SDV NEB ONE (10:06)
[2018-09-07] MEDS ORDERED: ALBUTEROL SULFATE 0.083% NEB 2.5 MG/3 ML AMPUL NEB ONE (10:06)
--- NOTE | 2018-09-07 10:09 | ER Document Report ---
ED Medical Screen (RME) - General Chief Complaint: Respiratory Distress Stated Complaint: SHORT OF BREATH Time Seen by Provider: 09/07/18 10:03 Notes: 57-year-old male patient with history of hypertension diabetes reports several week history of green to brown productive cough, some shortness of breath. Unable to rest or sleep due to all the coughing. Pain in the ribs from the coughing. Recently been running temperatures to 103.8. Did not get flu shot this year. I have greeted and performed a rapid initial assessment of this patient. A comprehensive ED assessment and evaluation of the patient, analysis of test results and completion of the medical decision making process will be conducted by additional ED providers. TRAVEL OUTSIDE OF THE [place] IN LAST 30 DAYS: No - Related Data Allergies/Adverse Reactions: butorphanol tartrate [From Stadol] Allergy (Verified 09/07/18 09:45) clarithromycin [From Biaxin] Allergy (Verified 09/07/18 09:45) ketorolac tromethamine [From Toradol] Allergy (Verified 09/07/18 09:45) NSAIDS (Non-Steroidal Anti-Inflamma [Nsaids] Allergy (Verified 09/07/18 09:45) Penicillins Allergy (Verified 09/07/18 09:45) tramadol [Tramadol] Allergy (Verified 09/07/18 09:45) Past Medical History - Past Medical History Cardiac Medical History: Reports: Hx Hypertension Denies: Hx Congestive Heart Failure, Hx Coronary Artery Disease, Hx Heart Attack Endocrine Medical History: Reports: Hx Diabetes Mellitus Type 2 Renal/ Medical History: Denies: Hx Peritoneal Dialysis Musculoskeltal Medical History: Reports Hx Arthritis Psychiatric Medical History: Denies: Hx Depression Past Surgical History: Reports: Hx Orthopedic Surgery - Multiple back neck and other orthopedic surgeries - Immunizations History of Influenza Vaccine for 07/2017 - 12/2017 Season: No Physical Exam - Vital signs Vitals: Temp Pulse Resp BP Pulse Ox 98.1 F 84 23 H 184/101 H 98 09/07/18 09:50 09/07/18 09:50 09/07/18 09:50 09/07/18 09:50 09/07/18 09:50 Course - Vital Signs Vital signs: Temp Pulse Resp BP Pulse Ox 98.1 F 84 23 H 184/101 H 98 09/07/18 09:50 09/07/18 09:50 09/07/18 09:50 09/07/18 09:50 09/07/18 09:50 Doctor's Discharge - Discharge Referrals: RADHA CAMPA DO [Primary Care Provider] - Follow up as needed
--- NOTE | 2018-09-07 10:49 | ER Document Report ---
ED Respiratory Problem - General Chief Complaint: Respiratory Distress Stated Complaint: SHORT OF BREATH Time Seen by Provider: 09/07/18 10:03 Information source: Patient Notes: 57-year-old male with past medical history of high blood pressure and diabetes who presents today stating around 6 weeks of a cough with some brownish sputum. Patient states initially with this cough he had a runny nose, congestion, and rhinorrhea. He states that resolved in around 2 weeks but the cough has persisted. He has had some intermittent elevated fevers, with his last recorded temperature 2 days ago. Patient denies any calf pain, leg swelling, or recent trips or travel. Patient states he has never been a smoker. He denies any anterior chest or abdominal pain. Patient states he has some right bilateral lower rib pain only with coughing. TRAVEL OUTSIDE OF THE [place] IN LAST 30 DAYS: No - HPI Patient complains to provider of: Other - See above Onset: Other - See above Duration: Continuous Initiating Event: Other - See above Quality of pain: Dull Severity: Mild Pain Level: Denies Context: Other - See above Short of Breath: Mild Cough: Productive Sputum amount: Scant Sputum color: Brown Associated symptoms: Other - See above - Related Data Allergies/Adverse Reactions: butorphanol tartrate [From Stadol] Allergy (Verified 09/07/18 09:45) clarithromycin [From Biaxin] Allergy (Verified 09/07/18 09:45) ketorolac tromethamine [From Toradol] Allergy (Verified 09/07/18 09:45) NSAIDS (Non-Steroidal Anti-Inflamma [Nsaids] Allergy (Verified 09/07/18 09:45) Penicillins Allergy (Verified 09/07/18 09:45) tramadol [Tramadol] Allergy (Verified 09/07/18 09:45) Past Medical History - Social History Smoking Status: Former Smoker Chew tobacco use (# tins/day): No Frequency of alcohol use: None Drug Abuse: None Family History: Reviewed & Not Pertinent Patient has suicidal ideation: No Patient has homicidal ideation: No - Past Medical History Cardiac Medical History: Reports: Hx Hypertension Denies: Hx Congestive Heart Failure, Hx Coronary Artery Disease, Hx Heart Attack Endocrine Medical History: Reports: Hx Diabetes Mellitus Type 2 Renal/ Medical History: Denies: Hx Peritoneal Dialysis Musculoskeletal Medical History: Reports Hx Arthritis Psychiatric Medical History: Denies: Hx Depression Past Surgical History: Reports: Hx Orthopedic Surgery - Multiple back neck and other orthopedic surgeries Review of Systems - Review of Systems Constitutional: Fever EENT: Nose congestion. denies: Eye discharge, Nose discharge Cardiovascular: denies: Palpitations, Heart racing Respiratory: denies: Short of breath Gastrointestinal: denies: Vomiting Genitourinary: denies: Dysuria Musculoskeletal: denies: Leg swelling Skin: Other - no hives. denies: Rash Neurological/Psychological: Other - no slurred speech -: Yes All other systems reviewed and negative Physical Exam - Vital signs Vitals: Temp Pulse Resp BP Pulse Ox 98.1 F 84 23 H 184/101 H 98 09/07/18 09:50 09/07/18 09:50 09/07/18 09:50 09/07/18 09:50 09/07/18 09:50 Notes: Reviewed vital signs and nursing note as charted by RN. CONSTITUTIONAL: Alert and oriented and responds appropriately to questions. Well -appearing; well-nourished HEAD: Normocephalic; atraumatic EYES: PERRL; Conjunctivae clear, sclerae non-icteric ENT: Normal nose; no rhinorrhea; moist mucous membranes; pharynx without lesions noted NECK: Supple without meningismus; non-tender; no cervical lymphadenopathy, no masses CARD: Regular rate and rhythm; no murmurs; symmetric distal pulses RESP: Normal chest excursion without splinting or tachypnea; breath sounds clear and equal bilaterally with no current wheezing, rhonchi, or rales appreciated ABD/GI: Normal bowel sounds; non-distended; soft, non-tender to palpation of bilateral upper quadrants; no palpable organomegaly or masses BACK: The back appears normal and is non-tender to palpation EXT: Normal ROM in all joints; non-tender to palpation; no edema SKIN: No acute lesions noted NEURO: CN 2-12 intact; 5/5 bilateral upper and lower extremity strength with sensation intact to light touch PSYCH: The patient's mood and manner are appropriate. Grooming and personal hygiene are appropriate. Course - Re-evaluation Re-evalutation: 09/07/18 10:49 Given the history and physical examination a cardiac evaluation as well as an x- ray of the chest, influenza test, and blood cultures were ordered in triage. Given the initial runny nose, congestion, low-grade fevers, productive cough, for symptomatology for around 6 weeks, I do believe acute pulmonary embolism or dissection to be unlikely. Patient has no calf pain or leg swelling, no recent edema. I have added on a BNP but I do believe heart failure to also be unlikely. We will provide a nebulizer treatment and reassess the patient's lungs. 09/07/18 10:55 Heart rate 75, normal sinus rhythm, normal axis, poor R wave progression, no ST elevation or depression. No change when compared to previous EKG. 09/07/18 12:26 Labs, troponin, x-ray of the chest, and BNP as recorded. Negative influenza. Patient is satting 96% on room air with a heart rate of 74. Blood pressure slightly elevated but the patient is taking his blood pressure medications. He has no lower extremity edema, anterior chest pain, or headache at this time. Patient's primary care physician has called him and he will follow-up with him in the office. Patient has had no recent travel. Patient does have a positive sick contact that he sees often with similar symptomatology recently. Patient is allergic to azithromycin. I will start the patient on a short course of Levaquin as well as a dose of steroids prior to discharge. Patient will be discharged home with strict return precautions and instructions to follow-up with the primary care physician. - Vital Signs Vital signs: Temp Pulse Resp BP Pulse Ox 98.1 F 84 22 H 194/108 H 96 09/07/18 09:50 09/07/18 09:50 09/07/18 11:40 09/07/18 11:36 09/07/18 11:40 - Laboratory Result Diagrams: 09/07/18 10:51 09/07/18 10:51 Laboratory results interpreted by me: 09/07/18 09/07/18 10:51 10:51 RDW 14.6 H Carbon Dioxide 21 L Glucose 144 H AST 13 L Total Protein 8.3 H Albumin 5.1 H Discharge - Discharge Clinical Impression: Cough Condition: Good Disposition: HOME, SELF-CARE Additional Instructions: Come back immediately for any continued or worsening cough, pain, leg swelling, return of fevers, vomiting, or any other acute problems. Please take the antibiotics as prescribed and please follow-up with your primary care physician or here in the emergency department for reassessment. Prescriptions: Levofloxacin [Levaquin 750 mg Tablet] 750 mg PO DAILY #4 tablet Referrals: RADHA CAMPA DO [Primary Care Provider] - Follow up as needed
[2018-09-07 11:14] LABS: ABSOLUTE BASOPHILS # (AUTO) 0.1 10^3/uL (0.0-0.2); ABSOLUTE LYMPHOCYTES (AUTO) 1.7 10^3/uL (0.5-4.7); ABSOLUTE MONOCYTES (AUTO) 0.6 10^3/uL (0.1-1.4); ABSOLUTE NEUT (AUTO) 6.1 10^3/uL (1.7-8.2); BASOPHILS % (AUTO) 0.9 % (0-2); EOSINOPHILS % (AUTO) 0.3 % (0-6); HEMATOCRIT 41.9 % (37.9-51.0); HEMOGLOBIN 14.6 g/dL (13.5-17.0); LYMPHOCYTES % (AUTO) 19.8 % (13-45); MEAN CORPUSCULAR HEMOGLOBIN 31.4 pg (27.0-33.4); MEAN CORPUSCULAR HGB CONC 34.8 g/dL (32.0-36.0); MEAN CORPUSCULAR VOLUME 90 fl (80-97); MONOCYTES % (AUTO) 6.9 % (3-13); PLATELET COUNT 431 10^3/uL (150-450); RED BLOOD COUNT 4.64 10^6/uL (4.35-5.55); RED CELL DISTRIBUTION WIDTH 14.6 % (11.5-14.0); SEGMENTED NEUTROPHILS % (AUTO) 72.1 % (42-78); TOTAL CELLS COUNTED % (AUTO) 100 %; WHITE BLOOD COUNT 8.4 10^3/uL (4.0-10.5)
[2018-09-07 11:31] LABS: A TYPE INFLUENZA AG NEGATIVE (NEGATIVE); B INFLUENZA AG NEGATIVE (NEGATIVE)
[2018-09-07 11:42] LABS: ALANINE AMINOTRANSFERASE 23 U/L (21-72); ALBUMIN 5.1 g/dL (3.5-5.0); ALKALINE PHOSPHATASE 48 U/L (38-126); ANION GAP 19 (5-19); ASPARTATE AMINO TRANSFERASE 13 U/L (17-59); BILIRUBIN,DIRECT 0.4 mg/dL (0.0-0.4); BILIRUBIN,TOTAL 0.7 mg/dL (0.2-1.3); BLOOD UREA NITROGEN 8 mg/dL (7-20); CALCIUM 9.9 mg/dL (8.4-10.2); CARBON DIOXIDE 21 mmol/L (22-30); CHLORIDE 100 mmol/L (98-107); GLUCOSE 144 mg/dL (75-110); POTASSIUM 3.9 mmol/L (3.6-5.0); SODIUM 140.2 mmol/L (137-145); TOTAL PROTEIN 8.3 g/dL (6.3-8.2)
--- NOTE | 2018-09-07 11:46 | RADIOLOGY REPORT (SQ) ---
EXAM DESCRIPTION: CHEST 2 VIEWS COMPLETED DATE/TIME: 09/07/2018 11:32 am REASON FOR STUDY: Brown sputum, cough, short of breath COMPARISON: 06/14/2018 EXAM PARAMETERS: NUMBER OF VIEWS: two views TECHNIQUE: Digital Frontal and Lateral radiographic views of the chest acquired. RADIATION DOSE: NA LIMITATIONS: none FINDINGS: LUNGS AND PLEURA: Low lung volumes limits the examination. No opacities, masses or pneum othorax. No pleural effusion. MEDIASTINUM AND HILAR STRUCTURES: No masses or contour abnormalities. HEART AND VASCULAR STRUCTURES: Heart normal size. No evidence for failure. BONES: The osseous structures are stable in appearance. HARDWARE: None in the chest. OTHER: Hardware anterior fusion mid lower cervical spine. IMPRESSION: 1. Low lung volumes limits examination. NO ACUTE RADIOGRAPHIC FINDING IN THE CHEST. TECHNICAL DOCUMENTATION: JOB ID: [id number] [employer]- All Rights Reserved Reading location - IP/workstation name: [email or web address]
[2018-09-07 11:54] LABS: NT PRO BNP 51 pg/mL (5-900)
[2018-09-07 11:55] LABS: TROPONIN I < 0.012 ng/mL
[2018-09-07] MEDS ORDERED: HYDROCODONE/ACETAMINOPHEN 5-325 MG TABLET PO ONE (12:09)
[2018-09-07] MEDS ORDERED: LEVOFLOXACIN 750 MG TABLET PO ONE (12:09)
[2018-09-07] MEDS ORDERED: NORMAL SALINE 1000 ML 1,000 ML IV ONE (12:25)
[2018-09-07] MEDS ORDERED: DEXAMETHASONE SOD PHOS INJ 10 MG/1 ML VIAL PO ONE (12:27)
[2018-09-07 14:02] VITALS: BP 150/97
--- NOTE | 2018-09-07 20:13 | EKG REPORT ---
SEVERITY:- NORMAL ECG - SINUS RHYTHM : Confirmed by: Sisi Ibarra 07-Sep-2018 20:12:29
== END 2018-09-07 14:00 | disposition home or self-care (01) ==
LOC: ER 09:44
DX: R05 Cough (principal); R07.81 Pleurodynia; R50.9 Fever, unspecified; R09.81 Nasal congestion; I10 Essential (primary) hypertension; E11.9 Type 2 diabetes mellitus without complications; Z88.1 Allergy status to other antibiotic agents; Z88.5 Allergy status to narcotic agent; Z88.8 Allergy status to other drugs, medicaments and biological substances; Z88.0 Allergy status to penicillin; Z87.891 Personal history of nicotine dependence
CPT/HCPCS: 93005; 94640; 99285; 96360; 36415; 87040; 85025; 80053; 84484; 87804; 83880; 71046; 93010; J7030; J1100; A9270 ×3

== ENCOUNTER 2020-07-06 05:47 | Day surgery (SDC) | payer MEDICARE ==
[2020-06-29 12:48] LABS: HEMATOCRIT 38.7 % (37.9-51.0); HEMOGLOBIN 13.2 g/dL (13.5-17.0); MEAN CORPUSCULAR HGB CONC 34.2 g/dL (32.0-36.0); MEAN CORPUSCULAR VOLUME 91 fl (80-97); PLATELET COUNT 279 10^3/uL (150-450); RED BLOOD COUNT 4.27 10^6/uL (4.35-5.55); RED CELL DISTRIBUTION WIDTH 14.2 % (11.5-14.0); WHITE BLOOD COUNT 14.4 10^3/uL (4.0-10.5)
[2020-06-29 12:50] LABS: APPEARANCE,URINE CLEAR; BILIRUBIN,URINE NEGATIVE (NEGATIVE); COLOR,URINE YELLOW; GLUCOSE, URINE >=500 mg/dL (NEGATIVE); KETONES,URINE NEGATIVE (NEGATIVE); LEUKOCYTE ESTERASE,URINE NEGATIVE (NEGATIVE); NITRITE,URINE NEGATIVE (NEGATIVE); PROTEIN,URINE 100 mg/dL (NEGATIVE); URINE SPECIFIC GRAVITY 1.031; UROBILINOGEN,URINE NEGATIVE mg/dL (<2.0)
[2020-06-29 13:28] LABS: ERYTHROCYTE SEDIMENTATION RATE 45 mm/hr (0-20)
[2020-06-29 13:39] LABS: ANION GAP 11 (5-19); BLOOD UREA NITROGEN 12 mg/dL (7-20); CALCIUM 9.4 mg/dL (8.4-10.2); CARBON DIOXIDE 25 mmol/L (22-30); CHLORIDE 100 mmol/L (98-107); GLUCOSE 214 mg/dL (75-110); POTASSIUM 4.1 mmol/L (3.6-5.0)
--- NOTE | 2020-06-29 13:42 | RADIOLOGY REPORT (SQ) ---
EXAM DESCRIPTION: CHEST PA/LATERAL IMAGES COMPLETED DATE/TIME: 06/29/2020 1:09 pm REASON FOR STUDY: PRE-OP COMPARISON: 09/07/2018 EXAM PARAMETERS: NUMBER OF VIEWS: two views TECHNIQUE: Digital Frontal and Lateral radiographic views of the chest acquired. RADIATION DOSE: NA LIMITATIONS: none FINDINGS: LUNGS AND PLEURA: No opacities, masses or pneumothorax. No pleural effusion. MEDIASTINUM AND HILAR STRUCTURES: No masses or contour abnormalities. HEART AND VASCULAR STRUCTURES: Heart normal size. No evidence for failure. BONES: No acute findings. HARDWARE: None in the chest. OTHER: No other significant finding. IMPRESSION: NO SIGNIFICANT RADIOGRAPHIC FINDING IN THE CHEST. TECHNICAL DOCUMENTATION: JOB ID: [id number] 2010 [employer]- All Rights Reserved Reading location - IP/workstation name: [email or web address]
[2020-06-29 13:53] LABS: C-REACTIVE PROTEIN 161.3 mg/L (<10.0)
--- NOTE | 2020-06-29 13:56 | EKG REPORT ---
SEVERITY:- BORDERLINE ECG - SINUS TACHYCARDIA BORDERLINE T ABNORMALITIES, INFERIOR LEADS : Confirmed by: Kirna Ornelas MD 29-Jun-2020 13:55:46
[~2020-07-06 05:47] MED LIST: ACETAMINOPHEN 325 MG TABLET PO PRN; CEFAZOLIN 2 GM/D5W RTU 2 GM/50 ML RTUPB IV PRN; CELECOXIB 200 MG CAPSULE PO PRN; GABAPENTIN 100 MG CAPSULE PO PRN; LACTATED RINGERS 1000 ML IV PRN; LIDOCAINE 0.5% INJ-PF (5 MG/ML) 50 ML SDV SUBCUT PRN; ONDANSETRON HCL INJ/PF 4 MG/2 ML SDV IV PRN; SCOPOLAMINE HYDROBROMIDE 1.5 MG PATCH.TD72 TD PRN; TRAMADOL HCL 50 MG TABLET PO PRN; TRANEXAMIC ACID INJ/PF 1,000 MG/10 ML SDV IV PRN; VANCOMYCIN HCL 1,000 MG in DEXTROSE 5%-WATER 250 ML IV PRN
[2020-07-06] MEDS ORDERED: ONDANSETRON HCL INJ/PF 4 MG/2 ML SDV ONE ×2 (06:11→06:36)
[2020-07-06] MEDS ORDERED: ACETAMINOPHEN 325 MG TABLET ONE (06:11)
[2020-07-06] MEDS ORDERED: OXYCODONE HCL SR 10 MG TABLET PO ONE (06:11)
[2020-07-06] MEDS ORDERED: SCOPOLAMINE HYDROBROMIDE 1.5 MG PATCH.TD72 ONE (06:11)
[2020-07-06] MEDS ORDERED: FENTANYL CITRATE INJ/PF 100 MCG/2 ML AMPUL ONE (06:36)
[2020-07-06] MEDS ORDERED: MIDAZOLAM 2 MG/2 ML INJ ONE (06:36)
[2020-07-06] MEDS ORDERED: EPHEDRINE SULFATE INJ 50 MG/1 ML AMPULE ONE (06:36)
[2020-07-06] MEDS ORDERED: PROPOFOL 1,000 MG/100 ML INFUS..BTL IV ONE (06:37)
[2020-07-06] MEDS ORDERED: TRANEXAMIC ACID INJ/PF 1,000 MG/10 ML SDV ONE (07:17)
[2020-07-06] MEDS ORDERED: CEFAZOLIN 2 GM/D5W RTU 2 GM/50 ML RTUPB IV ONE (07:18)
[2020-07-06] MEDS ORDERED: KETOROLAC TROMETHAMINE INJ/PF 30 MG/1 ML SDV ONE (07:20)
[2020-07-06] MEDS ORDERED: BUPIVACAINE HCL 0.25 % INJ/PF (2.5 MG/1 ML) 30 ML VIAL ONE (07:20)
[2020-07-06] MEDS ORDERED: LIDOCAINE 1% INJ-PF (10 MG/ML) 30 ML SDV ONE (07:20)
[2020-07-06] MEDS ORDERED: VANCOMYCIN HCL INJ 1000 MG VIAL ONE (07:20)
[2020-07-06] MEDS ORDERED: PROMETHAZINE HCL INJ 25 MG/1 ML VIAL IV PRN ×2 (08:29)
[2020-07-06] MEDS ORDERED: FENTANYL CITRATE INJ/PF 100 MCG/2 ML AMPUL IV PRN ×3 (08:29)
[2020-07-06] MEDS ORDERED: DIPHENHYDRAMINE HCL 50 MG/ML VIAL IV PRN (08:29)
[2020-07-06] MEDS ORDERED: PROPOFOL INJ 200 MG/20 ML VIAL IV ONE (08:53)
[2020-07-06] MEDS: FENTANYL CITRATE INJ/PF 100 MCG/2 ML AMPUL ONE ×2 (09:48→09:55)
[2020-07-06] MEDS ORDERED: ROPIVACAINE HCL 0.5% INJ/PF (5 MG/1 ML) 30 ML SDV ONE ×2 (09:57→10:47)
[2020-07-06] MEDS ORDERED: OXYCODONE HCL IR 5 MG TABLET PO PRN ×3 (10:05)
[2020-07-06] MEDS ORDERED: DOCUSATE SODIUM 100 MG CAPSULE PO PRN (10:05)
[2020-07-06] MEDS ORDERED: PANTOPRAZOLE SODIUM 20 MG TABLET.DR PO ONE (10:05)
[2020-07-06] MEDS ORDERED: DEXAMETHASONE SOD PHOS INJ 10 MG/1 ML VIAL IV ONE (10:05)
[2020-07-06] MEDS ORDERED: ONDANSETRON 4 MG TAB.RAPDIS PO PRN (10:05)
[2020-07-06] MEDS ORDERED: MORPHINE SULFATE 10 MG/ML INJ IV PRN ×2 (10:05)
[2020-07-06] MEDS ORDERED: ZOLPIDEM TARTRATE 5 MG TABLET PO PRN (10:05)
[2020-07-06] MEDS ORDERED: NORMAL SALINE 1000 ML 1,000 ML IV ONE (10:05)
[2020-07-06] MEDS ORDERED: DIPHENHYDRAMINE HCL 25 MG CAPSULE PO PRN (10:05)
[2020-07-06] MEDS ORDERED: TRANEXAMIC ACID INJ/PF 1,000 MG/10 ML SDV IV ONE (10:05)
[2020-07-06] MEDS: HYDROMORPHONE HCL INJ/PF 2 MG/ML AMPULE ONE ×4 (10:05→10:20)
--- NOTE | 2020-07-06 10:05 | Operative Report ---
Operative Report DATE OF SURGERY: 07/06/20 PREOPERATIVE DIAGNOSIS: severe right knee primary osteoarthritis POSTOPERATIVE DIAGNOSIS: severe right knee osteoarthritis OPERATION: right total knee arthroplasty SURGEON: TAY VALENCIA JR ANESTHESIA: Spinal COMPLICATIONS: none ESTIMATED BLOOD LOSS: 30 cc PROCEDURE: Components: Pat Triathlon Total knee: 5 PS femur, 6 x 11 tibia, and a 38 patella OPERATIVE PROCEDURE: Patient was brought to the operating room and spinal anesthesia was administered. After proper anesthesia was obtained, patient was positioned, padded, prepped, and draped in the usual sterile fashion on the operating room table. 2 grams of Ancef and 1 g of vancomycin were given. Appropriate time out was performed. Anterior incision and medial-parapatella approach was performed. Severe degenerative arthritis was noted. Osteophytes were removed from the femur and tibia, and the remainder of the ACL and PCL were removed. The proximal tibia was then prepared and cut perpendicular to the tibial shaft axis and measured to a 6 tibia. The distal femur was drilled, the canal was irrigated and the distal femoral guide was placed. The distal femur was cut 12 mm to 5 degrees of varus. An extension 10 block was placed in the gap was found to be appropriate. The tensor was placed in extension and the extension gap was balanced with releases until the goniometer on the tensor measured to 0. The tensor was placed in flexion and the femur was sized to 5. Drill holes were placed to the appropriate femoral rotation. The 4 and 1 block was placed and the flexion gap was then re-checked with the tensor adapter and found to be appropriate. Anterior-posterior and chamfer cuts were made. Posterior osteophytes were removed. The femoral trial was then placed, and the notch was cut. The combination of the tibial baseplate and the 9 mm polyethylene liner were then placed and the knee was taken through a range of motion with the trials in. This had good balance in extension and flexion as well as patellar tracking. The patella AP aspect was measured to 25 mm and the patella was cut parallel to the anterior patella surface. A 38 mm button was placed medially and superiorly as possible and the patella-button construct again measured 5 mm. This was again taken through a range of motion, this time with an 11 mm polyethylene and found to have excellent balance, stability and ease of full motion. The rotation of the tibial baseplate was marked, the tibial was anteriorly subluxed and the tibial component was pinned and drilled and punched. All the trials were then removed and the wound was copiously irrigated with sterile saline followed by a Betadine soak. After pulsatile irrigation of the yolanda and soft tissue surfaces, the yolanda surfaces were cleaned and dried, and cementation of the femur, tibia, and patella was performed. All excess cement was thoroughly removed. The knee was placed in slight flexion until cement was hard. Periarticular injection with Lidocaine, Marcaine and Toradol was performed. The knee was irrigated copiously. A gram of Vancomycin was placed intra-articularly. The extensor mechanism was closed with 0 vicryl tacking sutures and number 2 Stratofix. The subcutaneous tissue was closed with 2-0 monocryl and the skin closed with 3-0 running monocryl. A silver dressing was applied. All needle sponge and instrument counts were correct. Patient was awakened from sedation anesthesia and taken to recovery room in good condition. Tay Valencia DO
--- NOTE | 2020-07-06 10:28 | Discharge Summary ---
Discharge Summary (SDC) - Discharge Final Diagnosis: Right total knee arthroplasty Date of Surgery: 07/06/20 Discharge Date: 07/06/20 Condition: Stable Treatment or Instructions: Full details of postoperative instructions have been provided to the patient in the clinic. Additionally they should maintain their bandage in place for 10 days, and then changed to a dry dressing. They can take showers with this occlusive dressing but any further dressing should also be occlusive. No showers with the wound unprotected until cleared by me in the clinic. If the bandage falls off early or become saturated they can change as needed to another occlusive dressing. Follow-up with Dr. Tay Soto, orthopedic surgeon at [facility] for surgery, in 10 days. Call for an appointment. . [address], [place] [address] Referrals: RDAHA CAMPA DO [Primary Care Provider] - Discharge Diet: Diabetic Respiratory Treatments at Home: Deep Breathing/Coughing Discharge Activity: Activity As Tolerated, No Driving, No Lifting/Push/Pulling, Slowly Increase Activity, No tub bath, Walk Frequently Adaptive Devices on Discharge: Rolling Walker, Bedside Commode Report the Following to Your Physician Immediately: Shortness of Breath, Fever over 101 Degrees, Unusual Bleeding, Drainage-Yellow
[2020-07-06] MEDS ORDERED: HYDRALAZINE HCL INJ/PF 20 MG/1 ML SDV ONE (10:44)
[2020-07-06] MEDS ORDERED: ALPRAZOLAM 0.5 MG TABLET PO PRN (11:59)
--- NOTE | 2020-07-06 12:44 | RADIOLOGY REPORT (SQ) ---
EXAM DESCRIPTION: KNEE RIGHT 2 VIEWS IMAGES COMPLETED DATE/TIME: 07/06/2020 10:37 am REASON FOR STUDY: post op M17.11 UNILATERAL PRIMARY OSTEOARTHRITIS, RIGHT KNEE Z79.899 OTHER [facility] (CURRENT) DRUG THERAPY COMPARISON: None. NUMBER OF VIEWS: Two views. TECHNIQUE: AP and lateral radiographic images acquired of the right knee. LIMITATIONS: None. FINDINGS: Postoperative images show a right total knee arthroplasty in good position. IMPRESSION: Right knee arthroplasty. Refer to operative note for further information. TECHNICAL DOCUMENTATION: JOB ID: [id number] 2010 [employer]- All Rights Reserved Reading location - IP/workstation name: [email or web address]
[2020-07-06] MEDS: ACETAMINOPHEN 325 MG TABLET PO SCH ×3 (13:00→23:43)
[2020-07-06] MEDS: OXYCODONE HCL IR 5 MG TABLET PO PRN ×3 (13:02→21:38)
[2020-07-06] MEDS ORDERED: CEFAZOLIN 2 GM/D5W RTU 2 GM/50 ML RTUPB IV SCH (14:00)
[2020-07-06] MEDS ORDERED: KETOROLAC TROMETHAMINE INJ/PF 30 MG/1 ML SDV IV SCH (14:00)
[2020-07-06] MEDS: CEFAZOLIN SODIUM 2 GM in DEXTROSE 5%-WATER 100 ML IV SCH ×2 (14:44→21:39)
[2020-07-06] MEDS ORDERED: EPINEPHRINE INJ/PF 1 MG/1 ML AMPULE ONE (15:39)
[2020-07-06] MEDS ORDERED: METOPROLOL TARTRATE PF/INJ 5 MG/5 ML SDV IV ONE (15:39)
[2020-07-06] MEDS ORDERED: METOPROLOL SUCCINATE 25 MG TAB.SR.24H PO ONE (20:40)
[2020-07-06] MEDS ORDERED: METOPROLOL TARTRATE 25 MG TABLET ONE (20:45)
[2020-07-06] MEDS: METOPROLOL TARTRATE 25 MG TABLET PO SCH (21:00)
[2020-07-06] MEDS: GABAPENTIN 100 MG CAPSULE PO SCH (21:38)
[2020-07-06] MEDS ORDERED: ATORVASTATIN CALCIUM 20 MG TABLET PO SCH (22:00)
[2020-07-07] MEDS: OXYCODONE HCL IR 5 MG TABLET PO PRN ×3 (01:57→10:08)
--- NOTE | 2020-07-07 06:42 | PDOC PROGRESS REPORT ---
Subjective Progress Note for:: 07/07/20 Subjective:: Patient doing well this morning. Reports pain overnight but as expected. Had a long discussion with the patient regards to pain expectations after total knee arthroplasty. No acute events overnight. Patient getting out of bed on his own to go to the bathroom. Reason For Visit: M17.11 UNILATERAL PRIMARY OSTEOARTHRITIS, RIGHT KN Physical Exam Vital Signs: Temp Pulse Resp BP Pulse Ox 99.0 F 96 17 148/99 H 93 07/06/20 23:35 07/06/20 23:35 07/06/20 23:35 07/07/20 05:31 07/06/20 23:35 Intake & Output 07/05/20 07/06/20 07/07/20 06:59 06:59 06:59 Intake Total 0 6848 Output Total 2049 Balance 0 4798 Weight 98.88 kg 98.8 kg Physical Exam: No acute distress, alert and orient x3 Right lower extremity -Pulses 2+ distally -Compartments soft -Sensation grossly intact to L3-4-5 S1 -Motor grossly intact to EHL TA gastroc and quad Dressings clean dry and intact Results Laboratory Results: 06/29/20 11:49 06/29/20 11:49 Impressions: Chest X-Ray 06/29/20 00:00 IMPRESSION: NO SIGNIFICANT RADIOGRAPHIC FINDING IN THE CHEST. Knee X-Ray 07/06/20 10:07 IMPRESSION: Right knee arthroplasty. Refer to operative note for further information. Assessment & Plan - Diagnosis (1) History of total right knee replacement Is this a current diagnosis for this admission?: Yes Plan: - 2 doses of Ancef postoperatively q 8 hours to complete 24 hours perioperatively -Weightbearing as tolerated, no precautions, encourage out of bed BROOKE for ADL training - PT/OT - Keep knee extended in bed, rolled towel under the ankle to obtain full extension -aspirin 325 daily for DVT prophylaxis for 6 weeks -multimodal pain management to avoid excessive narcotics, including gabapentin, tramadol, Toradol, acetaminophen. -Dressing should not be removed for 7 to 10 days until seen in the office -May shower with the dressing intact, if it starts to come off she should not get the incision wet. -Follow-up with Dr. Tay Soto, orthopedic surgeon at [facility] for surgery, in 10 days. Call for an appointment. . [address], [place] [address] - Time Time Spent with patient: Less than 15 minutes
[2020-07-07] MEDS: ACETAMINOPHEN 325 MG TABLET PO SCH (06:59)
[2020-07-07] MEDS: METOPROLOL TARTRATE 25 MG TABLET PO SCH (08:17)
[2020-07-07] MEDS ORDERED: (PENDING PHARMACY ID) (Lisinopril [Prinivil] 20 MG) PO SCH (10:00)
[2020-07-07] MEDS ORDERED: POLYETHYLENE GLYCOL 3350 POWDER 17 GM/1 PACKET PO SCH (10:00)
[2020-07-07] MEDS ORDERED: ASPIRIN 325 MG TABLET PO SCH (10:00)
[2020-07-07] MEDS ORDERED: LISINOPRIL 10 MG TABLET PO SCH (10:00)
[2020-07-07] MEDS ORDERED: METFORMIN HCL 500 MG TABLET PO SCH (10:00)
[2020-07-07] MEDS: GABAPENTIN 100 MG CAPSULE PO SCH (10:07)
[2020-07-07 10:32] VITALS: BP 148/86
[2020-07-08] MEDS ORDERED: OXYCODONE HCL SR 10 MG TABLET PO PRN (05:00)
[2020-07-08] MEDS ORDERED: CELECOXIB 200 MG CAPSULE PO SCH (10:00)
== END 2020-07-07 10:50 | disposition home health service (06) ==
LOC: OROUT 05:47 → 4N 11:42 → OROUT 07-07 10:50
PROVIDERS: ATTEND Orthopaedic Surgery
DX: M17.11 Unilateral primary osteoarthritis, right knee (principal); M25.561 Pain in right knee; Z88.5 Allergy status to narcotic agent; I10 Essential (primary) hypertension; Z79.899 Other long term (current) drug therapy; Z85.828 Personal history of other malignant neoplasm of skin; Z03.818 Encounter for observation for suspected exposure to other biological agents ruled out
CPT/HCPCS: 93005; 36415; 82962; 82040; 85027; 85652; 86140; 80048; 81001; 83036; 82306; 71046; 73560; 93010; 97530 ×2; 97110; 97116; 97163; 97535; 97167; 01402; 27447; G0378 ×2; C1776 ×2; C1713 ×4; U0003; J2795; A9270 ×15; J2250; J0690 ×2; J0171; J3010; J2704 ×2; J0360; J3490 ×5; J1885; J1170; J2405; J7060 ×2; J3370; C9803; 87635